=== PATIENT | male | born 1990 | race Two or more races ===

== ENCOUNTER 2024-02-08 15:11 | Emergency (ER) | payer OTHER ==
[~2024-02-08] VITALS: Ht 188 cm; Wt 72.6 kg
[2024-02-08] MEDS ORDERED: TETANUS & DIPHTHERIA TOX,ADULT 0.5 ML VIAL IM ONE (16:15)
== END 2024-02-08 16:57 | disposition home or self-care (01) ==
LOC: ER 15:12
DX: S01.01XA Laceration without foreign body of scalp, initial encounter (principal); X58.XXXA Exposure to other specified factors, initial encounter; Y93.89 Activity, other specified; Y92.39 Other specified sports and athletic area as the place of occurrence of the external cause; Y99.8 Other external cause status